=== PATIENT | female | born 1995 | race Caucasian/White ===

== ENCOUNTER 2021-02-08 00:59 | Emergency (ER) | payer OTHER ==
[~2021-02-08] VITALS: Ht 149.9 cm; Wt 81.6 kg
[2021-02-08] MEDS ORDERED: ACETAMINOPHEN 325 MG TAB PO ONE (02:00)
== END 2021-02-08 03:32 | disposition home or self-care (01) ==
LOC: ER 01:58
DX: R50.9 Fever, unspecified (principal); J40 Bronchitis, not specified as acute or chronic; B02.9 Zoster without complications; Z20.822 Contact with and (suspected) exposure to COVID-19
CPT/HCPCS: 99283; U0002